=== PATIENT | male | born 2000 | race Caucasian/White ===

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

== ENCOUNTER 2021-08-12 08:54 | Emergency (ER) | payer SELFPAY ==
[~2021-08-12] VITALS: Ht 182 cm; Wt 102.0 kg
--- NOTE | 2021-08-12 10:16 | ED General ---
General Chief Complaint: Eye Problems Stated Complaint: DOUBLE VISION IN LEFT EYE Nursing Triage Note: PT PRESENTS TO ED WITH COMPLAINTS OF MIGRAINE ON THURSDAY/THURSDAY. WENT AND SAW DAMION YESTERDAY WHO WANTED HIM TO GET A CT OF HIS HEAD FOR DOUBLE VISION. (JAYSHREE LARSON) History of Present Illness Date Seen by Provider: August 12, 2021 Time Seen by Provider: 09:55 Initial Comments 20 year old male presents to the ED with his mother for double vision since Thursday. Preceding the double vision he had a migraine all of and Thursday, with vomiting on Thursday which is normal for him. Abnormal for him was the duration as they typically last less than 24 hours. His vision was fine during the migraine, but upon awakening Thursday he began experiencing double vision that failed to resolve by Thursday. He reports seeing Dr. Luna yesterday who told him his left eye was sitting higher than his right and that it was likely due to an oscular muscle contracture, but wanted him to go to the ER yesterday to have a CT of his head. He didn't come in yesterday due to being called in to work. Dr. Luna reached out to him today regarding results of imaging and upon hearing he didn;t come in urged him to come in today. The patient denies pain with eye movement, change in vision out of left eye if he covers his right, swelling, rash, fevers, or chills. He has no recent sick exposure that he is aware of and no recent trauma to the eye or head. He denies weakness, numbness, or tingling of his extremities. Timing/Duration: 2-3 Days (JAYSHREE LARSON) Allergies and Home Medications Allergies Coded Allergies: No Known Drug Allergies (Unverified , 09/17/10) Patient Home Medication List Home Medication List Reviewed: Yes (BERTHA STEVENSON MD) Review of Systems Review of Systems Constitutional: No chills, No fever, No malaise EENTM: double vision; No hearing loss, No eye pain, No vision loss, No throat pain Respiratory: No cough, No short of breath Cardiovascular: No chest pain, No palpitations Gastrointestinal: No abdominal pain, No constipation, No diarrhea; nausea (Thursday only), vomiting (Thursday only) Musculoskeletal: No muscle pain, No muscle weakness Skin: No change in color, No lesions, No rash Psychiatric/Neurological: No Symptoms Reported Hematologic/Lymphatic: No Symptoms Reported Immunological/Allergic: no symptoms reported (JAYSHREE LARSON) Past Bxqrfpm-Qzigit-Adodgj Hx Patient Social History Tobacco Use?: No Substance use?: No Alcohol Use?: Yes Alcohol type: Beer Alcohol Frequency: Once in a while Pt feels they are or have been: No (JAYSHREE LARSON) Immunizations Up To Date First/Initial COVID19 Vaccinat: september 2020 COVID19 Vaccine Aerial 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: j&j (JAYSHREE LARSON) Past Medical History Surgery/Hospitalization HX: urethra stretching Respiratory: No Currently Using CPAP: No Currently Using BIPAP: No Cardiac: No Neurological: Yes Headaches /Migraines Reproductive Disorders: No Genitourinary: No Gastrointestinal: No Musculoskeletal: No Endocrine: No HEENT: No Hearing Impairment: Denies Cancer: No (JAYSHREE LARSON) Physical Exam Vital Signs Vital Signs - First Documented 08/12/21 09:05 Temp 36.7 Pulse 67 Resp 18 B/P (MAP) 134/72 (92) Pulse Ox 98 (BERTHA STEVENSON MD) Vital Signs Capillary Refill : Less Than 3 Seconds (JAYSHREE LARSON) Height, Weight, BMI Height: '" Weight: lbs. oz. kg; 30.00 BMI Method: General Appearance: No Apparent Distress, WD/WN, Other (eye patch covering left eye) Eyes: Bilateral Eye Normal Inspection, Bilateral Eye PERRL, Bilateral Eye EOMI HEENT: PERRL/EOMI, TMs Normal, Normal ENT Inspection, Pharynx Normal, Other (he reported double vision when both eyes were uncovered, but no abnormalities could be visually seen/produced upon exam.) Neck: Normal Inspection, Non Tender, Supple Respiratory: Chest Non Tender, Lungs Clear Cardiovascular: Regular Rate, Rhythm, No Edema, Normal Peripheral Pulses Gastrointestinal: Normal Bowel Sounds, Non Tender, Soft Back: Normal Inspection, No Vertebral Tenderness Extremity: Normal Inspection, Normal Range of Motion, No Pedal Edema Neurologic/Psychiatric: Alert, Oriented x3, No Motor/Sensory Deficits, scheduling agent II- XII Norm as Tested Skin: Normal Color, Warm/Dry; No Erythema, No Rash Lymphatic: No Adenopathy (JAYSHREE LARSON) Progress/Results/Core Measures Suspected Sepsis SIRS Temperature: Pulse: 67 Respiratory Rate: 18 Blood Pressure 134 /72 Mean: 92 (JAYSHREE LARSON) Results/Orders My Orders Orders - BERTHA STEVENSON MD Ct Head Wo (08/12/21 10:19) (BERTHA STEVENSON MD) Vital Signs/I&O 08/12/21 08/12/21 09:05 12:38 Temp 36.7 36.7 Pulse 67 67 Resp 18 18 B/P (MAP) 134/72 (92) 134/72 Pulse Ox 98 98 (BERTHA STEVENSON MD) Vital Signs/I&O Capillary Refill : Less Than 3 Seconds (JAYSHREE LARSON) Blood Pressure Mean: 92 Progress Note : Time: 12:00 Progress Note 20yo male with a history of "migraines" since he was a child. Always responsive to excedrin OTC. Has had headache the last few days and then woke with sudden onset double vision (horizontal in nature)- he believes only from his left eye. Had a visit to Dr Grier's office and was rec to come to ED for CT. He does not have a MEANS currently. Has left eye patched. No recent illnesses. no family history of brain related complaints. I have reviewed the medical students documentation and agree with it. My pertinent PE is as follows: NEURO: AxO x4; normal gait without ataxia. able to tandem gait and stand on toes.; CN 2-12 intact - i see no disconjugate gaze; speech is clear, tongue is midline. no dysarthria. MS is intact throughout. Some difficulty with F to N due to double vision. Able to complete H-S. No drift of any extremities. neg romberg. After Neg head CT i attempted to call Dr Desouza, as it is a holiday, that is likely why he didnt answer. I was hoping to be able to set up an MRI for thursday of next week. 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 He had rec waiting 3 months before referral to neuro. All findings and plan of care were communicated to the patient. He is comfortable with plan of care. All questions are sought and answered. (BERTHA STEVENSON MD) Diagnostic Imaging Diagonstic Imaging: CT Plain Films/CT/US/NM/MRI: head Comments Head CT w/out contrast can be read below: NAME: JOHN [facility] REC#: [id number] PT STATUS: REG ER : 2000 PHYSICIAN: BERTHA STEVENSON MD ADMIT DATE: 08/12/21/ER Signed Date of Exam:08/12/21 CT HEAD WO PROCEDURE: CT head without contrast. TECHNIQUE: Multiple contiguous axial images were obtained through the brain without the use of intravenous contrast. Auto Exposure Controls were utilized during the CT exam to meet ALARA standards for radiation dose reduction. INDICATION: Double vision. FINDINGS: The ventricles and sulci are within normal limits. There is no hydrocephalus or cerebral edema. There is no midline shift or mass effect. There is no intracranial mass, hemorrhage, or extra-axial fluid collection. The visualized paranasal sinuses and mastoid air cells are clear. There are no regional areas of decreased attenuation appreciated to suggest an acute CVA. IMPRESSION: No acute intracranial abnormality. Dictated by: Dictated on workstation # [id number] Dict: 08/12/21 1056 Trans: 08/12/21 1133 [facility] [id number] Interpreted by: RHONA PATEL MD Electronically signed by: RHONA PATEL MD 08/12/21 1133 (JAYSHREE LARSON) Departure Impression Primary Impression: Diplopia Disposition: 01 HOME, SELF-CARE Condition: Stable Departure-Patient Inst. Decision time for Depature: 12:33 (BERTHA STEVENSON MD) Referrals: DONNY DESOUZA MD (PCP/Family) Primary Care Physician Patient Instructions: Double Vision Add. Discharge Instructions: Please keep your eye patched until you have had further evaluation by your primary care doctor. If you develop severe headache with nausea and vomiting, have problems with balance or coordination or any other emergent concerning symptoms please come back to the emergency department. Please call 's office first thing tomorrow at 8:30 AM to see if he can get you scheduled for an MRI tomorrow afternoon. You should also discuss with him referral to a neurologist to further evaluate the double vision. Scripts No Active Prescriptions or Reported Meds Verification and Attestation of Medical Student E/M Service A medical student performed and documented this service in my presence. I reviewed and verified all information documented by the medical student and made modifications to such information, when appropriate. I personally performed the physical exam and medical decision making. Bertha Stevenson, August 12, 2021,12:35 (BERTHA STEVENSON MD) Copy Copies To 1: DONNY DESOUZA MD, CARSON August 12, 2021 10:15 BERTHA STEVENSON MD August 12, 2021 11:44
--- NOTE | 2021-08-12 11:04 | Diagnostic Imaging Report ---
PROCEDURE: CT head without contrast. TECHNIQUE: Multiple contiguous axial images were obtained through the brain without the use of intravenous contrast. Auto Exposure Controls were utilized during the CT exam to meet ALARA standards for radiation dose reduction. INDICATION: Double vision. FINDINGS: The ventricles and sulci are within normal limits. There is no hydrocephalus or cerebral edema. There is no midline shift or mass effect. There is no intracranial mass, hemorrhage, or extra-axial fluid collection. The visualized paranasal sinuses and mastoid air cells are clear. There are no regional areas of decreased attenuation appreciated to suggest an acute CVA. IMPRESSION: No acute intracranial abnormality. Dictated by: Dictated on workstation # [id number]
[2021-08-12 12:38] VITALS: BP 134/72
== END 2021-08-12 12:38 | disposition home or self-care (01) ==
LOC: EDUNIT# 08:54 → ER 08:56
DX: H53.2 Diplopia (principal); G43.909 Migraine, unspecified, not intractable, without status migrainosus; Z79.899 Other long term (current) drug therapy
CPT/HCPCS: 70450